=== PATIENT | female | born 1985 | race Caucasian/White ===

== ENCOUNTER → 2023-11-01 08:50 | Outpatient (REF) | payer OTHER, SELFPAY | LOC: PNTC 08:50 | PROVIDERS: ATTENDING PHYSICIAN Obstetrics & Gynecology | DX: O09.529 Supervision of elderly multigravida, unspecified trimester (principal) | CPT/HCPCS: 76816 ==

== ENCOUNTER 2023-12-27 01:46 | Inpatient (IN) | payer OTHER, SELFPAY ==
[2023-12-27 02:14] VITALS: BMI 35.3
[2023-12-27 02:25] VITALS: BP 126/80
[2023-12-27] MEDS: LR 1000 IV ×2 (02:30→03:16)
[2023-12-27 02:56] LABS: % Basophils 0.5 % (0-2); % Eosinophils 0.8 % (0-6); % Immature Granulocytes 1.4 % (0-0.5); % Lymphocytes 24.6 % (20.5-51.1); % Monocytes 6.9 % (1.7-9.3); % Neutrophils 65.8 % (42.2-75.2); Absolute Basophils 0.1 10^3/uL (0-0.2); Absolute Eosinophils 0.1 10^3/uL (0-0.7); Absolute Immature Granulocytes 0.2 10^3/uL (0-0.05); Absolute Lymphocytes 3.1 10^3/uL (1.2-3.4); Absolute Monocytes 0.9 10^3/uL (0.1-0.6); Absolute Neutrophils 8.2 10^3/uL (1.4-6.5); Hematocrit 38.6 % (37.0-47.0); Hemoglobin 12.9 g/dL (12.0-16.0); Mean Corp Hgb Conc. 33.4 g/dL (33.0-37.0); Mean Corpuscular Hgb 30.4 pg (27.0-31.0); Nucleated Red Blood Cells % 0 %; Platelet Count 244 10^3/uL (130-400); Red Blood Cell Count 4.24 10^6/uL (4.20-5.40); Red Cell Dist. Width 13.2 % (11.5-14.5); White Blood Cell Count 12.4 10^3/uL (4.8-10.8)
[2023-12-27] MEDS: FENTANYL/BUPIVACAINE 100 EPIDURAL ×2 (03:41→10:54)
[2023-12-27] MEDS: SUBLIMAZE 100 MCG EPIDURAL (03:41)
[2023-12-27] MEDS: PITOCIN 30 UNITS/NSS 500 ML IV (08:15)
[2023-12-27] MEDS: TUMS EX (EXTRA STRENGTH) CHEWABLE 2 TABLET PO (09:45)
[2023-12-28 05:24] LABS: Hematocrit 35.8 % (37.0-47.0); Hemoglobin 12.5 g/dL (12.0-16.0)
[2023-12-28] MEDS: SENOKOT-S 1 TABLET PO (08:43)
[2023-12-28] MEDS: TYLENOL 650 MG PO ×2 (08:43→14:57)
[2023-12-28] MEDS: MOTRIN 600 MG PO ×2 (08:43→14:58)
[2023-12-28 16:23] LABS: Syphilis/T. pallidum Ab Reflex Negative (Negative)
[2023-12-29] MEDS: MOTRIN 600 MG PO (00:18)
== END 2023-12-29 10:41 | disposition home or self-care (01) | DRG 807 ==
LOC: LDRP 01:46
PROVIDERS: Obstetrics & Gynecology; ADMITTING PHYSICIAN Obstetrics & Gynecology
PROC: 0HQ9XZZ Repair Perineum Skin, External Approach (ICD-10-PCS; 2023-12-27)
PROC: 10E0XZZ Delivery of Products of Conception, External Approach (ICD-10-PCS; 2023-12-27)
PROC: 10907ZC Drainage of Amniotic Fluid, Therapeutic from Products of Conception, Via Natural or Artificial Opening (ICD-10-PCS; 2023-12-27)
DX: O48.0 Post-term pregnancy (principal); Z37.0 Single live birth; Z3A.40 40 weeks gestation of pregnancy; O70.0 First degree perineal laceration during delivery; O69.81X0 Labor and delivery complicated by cord around neck, without compression, not applicable or unspecified; O76 Abnormality in fetal heart rate and rhythm complicating labor and delivery; K64.9 Unspecified hemorrhoids; G56.03 Carpal tunnel syndrome, bilateral upper limbs; O99.344 Other mental disorders complicating childbirth; F41.9 Anxiety disorder, unspecified; O99.214 Obesity complicating childbirth
CPT/HCPCS: 85014; 85018; 85025; 86780; 86850; 86900; 86901

== ENCOUNTER → 2024-06-30 08:53 | Outpatient (REF) | payer OTHER, SELFPAY | LOC: HWRAD 08:53 | PROVIDERS: ATTENDING PHYSICIAN Family Medicine | DX: M25.551 Pain in right hip (principal) | CPT/HCPCS: 73502 ==

== ENCOUNTER → 2025-01-15 13:08 | Outpatient (REF) | payer BC, SELFPAY | LOC: RCS 13:08 | PROVIDERS: ATTENDING PHYSICIAN Family Medicine | DX: R00.1 Bradycardia, unspecified (principal); I49.3 Ventricular premature depolarization | CPT/HCPCS: 93225; 93226 ==

== ENCOUNTER → 2025-02-09 08:52 | Outpatient (REF) | payer BC, SELFPAY | LOC: HWRAD 08:52 | PROVIDERS: ATTENDING PHYSICIAN Family Medicine | DX: M77.11 Lateral epicondylitis, right elbow (principal) | CPT/HCPCS: 73080 ==